=== PATIENT | male | born 1975 | race Caucasian/White ===

== ENCOUNTER 2022-07-27 12:57 | Emergency (ER) | payer OTHER ==
[2022-07-27 13:07] VITALS: BP 160/121; PULSE 18; RESP 68; TEMP 98.6; BMI 35.2
[2022-07-27] MEDS ORDERED: METHOCARBAMOL 500 MG TABLET PO ONE (13:07)
[2022-07-27] MEDS ORDERED: ACETAMINOPHEN 325 MG TABLET (FP) PO ONE (13:07)
[2022-07-27] MEDS ORDERED: LIDOCAINE 5% TOPICAL PATCH TP ONE (13:07)
[2022-07-27] MEDS ORDERED: KETOROLAC TROMETHAMINE 30 MG/1 ML VIAL IM ONE (13:07)
[2022-07-27] MEDS ORDERED: ACETAMINOPHEN 500 MG TABLET (FP) ONE (13:10)
[2022-07-27] MEDS ORDERED: METHOCARBAMOL 500 MG TABLET ONE (13:10)
[2022-07-27] MEDS ORDERED: KETOROLAC TROMETHAMINE 30 MG/1 ML VIAL ONE (13:11)
[2022-07-27] MEDS ORDERED: LIDOCAINE 5% TOPICAL PATCH ONE (13:11)
[2022-07-27] MEDS ORDERED: LIDOCAINE PATCH REMOVAL MC SCH (22:00)
== END 2022-07-27 13:37 | disposition home or self-care (01) ==
LOC: FER 12:57
PROC: 3E023GC Introduction of Other Therapeutic Substance into Muscle, Percutaneous Approach (ICD-10-PCS; principal; 2022-07-27)
DX: M25.512 Pain in left shoulder (principal)
CPT/HCPCS: 99284-25